=== PATIENT | female | born 1990 | race Caucasian/White ===

== ENCOUNTER 2017-11-18 15:45 | Emergency (ER) | payer OTHER ==
[2017-11-18 15:53] VITALS: BP 134/77; PULSE 86; RESP 16; TEMP 97.9
--- NOTE | 2017-11-18 16:10 | ED ---
Skin/Abscess/FB HPI - General Chief complaint: Skin/Abscess/Foreign Body Stated complaint: Hand Pain Source: patient Mode of arrival: wheelchair Limitations: no limitations - History of Present Illness Initial comments: Pt presents with wound on R wrist. Pt states 2 weeks ago a friend used a laser to try to remove a tattoo. Pt c/o wound is not healing. Was seen at urgent care yesterday, given Keflex, has taken 3 doses, states it is not improved. Denies F/ C, N/V. Denies dec ROM in wrist. Pt also c/o R knee pain, mild, only when bending. Denies recent trauma. Denies swelling or skin color changes. Pt states she has h/o arthritis. - Related Data Previous Rx's Medication Instructions Recorded Sulfamethoxazole/Trimethoprim 1 each PO BID #14 tablet 11/18/17 [Bactrim DS 800-160 mg] Allergies Allergy/AdvReac Type Severity Reaction Status Date / Time amoxicillin [From Augmentin] Allergy Unknown Verified 11/18/17 15:53 Childhood clavulanic acid Allergy Unknown Verified 11/18/17 15:53 [From Augmentin] Childhood Penicillins Allergy Unknown Verified 11/18/17 15:53 Childhood Review of Systems ROS Statement: Those systems with pertinent positive or pertinent negative responses have been documented in the HPI. Constitutional: Denies: fever, chills, weakness Eyes: Denies: vision change ENT: Denies: congestion Respiratory: Denies: cough Cardiovascular: Denies: chest pain Endocrine: Denies: fatigue Gastrointestinal: Denies: abdominal pain, nausea, vomiting Genitourinary: Denies: frequency Musculoskeletal: Reports: arthralgia (R knee). Denies: back pain, joint swelling, myalgia Skin: Reports: lesions Neurological: Denies: headache Past Medical History Past Medical History: Cancer Additional Past Medical History / Comment(s): lupus, thyroid History of Any Multi-Drug Resistant Organisms: None Reported Past Surgical History: Section Past Psychological History: No Psychological Hx Reported Smoking Status: Never smoker Past Alcohol Use History: None Reported Past Drug Use History: None Reported General Exam - General Exam Comments Initial Comments: Sitting up on side of bed. No acute distress. Conversing normally. Calm, pleasant, smiling. Well appearing. Limitations: no limitations General appearance: alert, in no apparent distress Head exam: Present: atraumatic, normocephalic Eye exam: Present: normal appearance, PERRL, EOMI ENT exam: Absent: mucous membranes dry Neck exam: Present: normal inspection Respiratory exam: Present: normal lung sounds bilaterally. Absent: respiratory distress, wheezes, rales Cardiovascular Exam: Present: regular rate, normal rhythm GI/Abdominal exam: Present: soft. Absent: distended, tenderness, guarding, rebound, rigid Extremities exam: Present: full ROM, normal capillary refill, other (Full range of motion in the right wrist and elbow. No edema of the right upper extremity. Full range of motion in the right knee. No edema of the right knee. No bony tenderness of the right upper extremity or right lower extremity. No ligamentous laxity in the right knee.). Absent: tenderness, joint swelling Neurological exam: Present: alert, oriented X3 Psychiatric exam: Present: normal affect, normal mood Skin exam: Present: warm, dry (3 mm x 5 mm superficial wound right wrist, with approximately 1/2 cm diameter surrounding erythema which is blanching. No induration or fluctuance appreciated. No streaking up the arm.) Course Vital Signs 11/18/17 15:46 Temperature 97.9 F Pulse Rate 86 Respiratory 16 Rate Blood Pressure 134/77 O2 Sat by Pulse 99 Oximetry Medical Decision Making - Medical Decision Making Patient appears to have small superficial wounds on right wrist, no sign of joint involvement or systemic disease. Patient to continue Keflex, will add Bactrim, patient agrees to follow up with primary care physician 2 days for wound recheck. Patient appears to have atraumatic right knee pain without signs of infection edema or other injury. Patient agrees to NSAIDs at home. Reevaluation with primary care physician, if pain continues agrees to discuss referral to orthopedic surgeon with her primary care physician. Return to ER for new or worsening symptoms. Patient understands and agrees. Pt comfortable being discharged home at this time. Disposition Clinical Impression: Cellulitis of wrist, Right knee pain Disposition: HOME SELF-CARE Condition: Good Instructions: Cellulitis (ED), Knee Pain (ED) Additional Instructions: Follow-up with her primary care physician in one to 2 days for reevaluation of wound. Also to discuss orthopedic surgery referral if right knee pain continues. Return to ER if new or worsening symptoms. Prescriptions: Sulfamethoxazole/Trimethoprim [Bactrim DS 800-160 mg] 1 each PO BID #14 tablet Referrals: Raad Cantor MD [Primary Care Provider] - 1-2 days
== END 2017-11-18 16:33 | disposition home or self-care (01) ==
LOC: EC 15:45
DX: L03.113 Cellulitis of right upper limb (principal); M25.561 Pain in right knee; Z85.9 Personal history of malignant neoplasm, unspecified; Z88.0 Allergy status to penicillin
CPT/HCPCS: 99283

== ENCOUNTER 2018-10-11 05:38 | Day surgery (SDC) | payer OTHER ==
--- NOTE | 2018-10-09 16:43 | P.HPOB ---
History of Present Illness H&P Date: 10/09/18 Cervical dysplasia, patient is scheduled for a LEEP colposcopy due to history of YULIYA-2 and feels cryo-cauterization. Risks/benefits/alternatives to this procedure were discussed with the patient in detail all questions were answered for her prior to proceeding to the operative room. We did discuss in particular the risk of sometimes can be difficult getting following a LEEP procedure as well as potential for cervical incompetence. All other questions were answered for her prior to proceeding to the operating room. Past Medical History Past Medical History: Cancer Additional Past Medical History / Comment(s): lupus, thyroid History of Any Multi-Drug Resistant Organisms: None Reported Past Surgical History: Section Past Psychological History: No Psychological Hx Reported Smoking Status: Never smoker Past Alcohol Use History: None Reported Past Drug Use History: None Reported Medications and Allergies Home Medications Medication Instructions Recorded Confirmed Type Ascorbic Acid [Vitamin C] 500 mg PO DAILY 11/18/17 11/18/17 History Cephalexin [Keflex] 500 mg PO Q12HR 11/18/17 11/18/17 History Ergocalciferol (Vitamin D2) 50,000 unit PO WE 11/18/17 11/18/17 History [Vitamin D2] Ferrous Sulfate [Feosol] 325 mg PO TID 11/18/17 11/18/17 History Gabapentin [Neurontin] 300 mg PO TID 11/18/17 11/18/17 History Hydroxychloroquine Sulfate 200 mg PO BID 11/18/17 11/18/17 History [Plaquenil] Levothyroxine Sodium [Synthroid] 100 mcg PO DAILY 11/18/17 11/18/17 History Multivitamins, Thera [Multivitamin 1 tab PO DAILY 11/18/17 11/18/17 History (formulary)] [place]-3 Fatty Acids/Fish Oil [Fish 1 cap PO DAILY 11/18/17 11/18/17 History Oil 1,000 mg Softgel] Sulfamethoxazole/Trimethoprim 1 each PO BID #14 tablet 11/18/17 Rx [Bactrim DS 800-160 mg] predniSONE 10 mg PO BID 11/18/17 11/18/17 History Allergies Allergy/AdvReac Type Severity Reaction Status Date / Time amoxicillin [From Augmentin] Allergy Unknown Verified 11/18/17 16:22 Childhood clavulanic acid Allergy Unknown Verified 11/18/17 16:22 [From Augmentin] Childhood Penicillins Allergy Unknown Verified 11/18/17 16:22 Childhood Exam Osteopathic Statement: *. No significant issues noted on an osteopathic structural exam other than those noted in the History and Physical/Consult. - OBG Physical Exam Breast: both: normal (no masses) Abdomen: bowel sounds normal, no diffuse tenderness, no bruit present, no guarding noted, no hepatomegaly, no splenomegaly, no mass Vulva: both: normal Vagina: normal moisture, no discharge Cervix: no lesion, no discharge Uterus: normal size, normal contour Adnexa: both: normal Anus/Rectum: normal perianal skin, no rectal mass, no hemorrhoids, heme negative
[2018-10-09 18:23] VITALS: BMI 28.2
[~2018-10-11 05:38] MED LIST: DEXAMETHASONE SOD PHOSPHATE 10 MG/ML 1 ML VIAL IV ONE; LACTATED RINGERS 1,000 ML IV SCH; LIDOCAINE 1% 20 ML VIAL (10MG/ML) FOR IV START INTRADERMA PRN; MIDAZOLAM 2 MG/2 ML VIAL IV PRN; Pre Op ABX Message 1 EACH MISC MISCELLANE ONE; fentaNYL (PF) 50 MCG/ML 2 ML AMP IV PRN
[2018-10-11] MEDS ORDERED: ONDANSETRON 4 MG/2 ML VIAL IVP ONE (06:40)
[2018-10-11] MEDS ORDERED: MIDAZOLAM 2 MG/2 ML VIAL IVP ONE ×2 (06:45→07:00)
[2018-10-11] MEDS ORDERED: LIDOCAINE 1% INJ 10MG/ML (20 ML MDV) ONE (07:50)
[2018-10-11] MEDS ORDERED: KETOROLAC 30 MG/ML 1 ML VIAL ONE (07:50)
[2018-10-11] MEDS ORDERED: MIDAZOLAM 2 MG/2 ML VIAL ONE (07:50)
[2018-10-11] MEDS ORDERED: fentaNYL (PF) 50 MCG/ML 2 ML AMP ONE (07:50)
[2018-10-11] MEDS ORDERED: PROPOFOL 10 MG/ML 20 ML VIAL IV ONE (07:50)
[2018-10-11 08:09] LABS: Basophils % (A) 1 %; Eosinophils # (A) 0.2 k/uL (0-0.7); Eosinophils % (A) 3 %; HCT 38.4 % (34.0-46.0); HGB 12.8 gm/dL (11.4-16.0); Lymphocytes % (A) 33 %; MCH 27.9 pg (25.0-35.0); MCHC 33.3 g/dL (31.0-37.0); MCV 83.6 fL (80.0-100.0); Mean Platelet Volume 7.7; Monocytes # (A) 0.4 k/uL (0-1.0); Monocytes % (A) 7 %; Neutrophils # (A) 3.3 k/uL (1.3-7.7); Neutrophils % (A) 55 %; Platelet Count 217 k/uL (150-450); RBC 4.59 m/uL (3.80-5.40); RDW 15.1 % (11.5-15.5)
[2018-10-11 08:10] VITALS: RESP 16
--- NOTE | 2018-10-11 08:16 | P.OP ---
Date of Procedure: 10/11/18 Preoperative Diagnosis: Cervical dysplasia Postoperative Diagnosis: Same Procedure(s) Performed: LEEP colposcopy Anesthesia: ANGEL LUIS Surgeon: Duane Cyr Estimated Blood Loss (ml): 5 Pathology: other (Cervical cone) Condition: stable Disposition: same day Operative Findings: Weight final tissue pathology Description of Procedure: Patient was taken to the operating suite where general anesthetic was found be adequate. She was prepped and draped in the normal sterile fashion and placed in the dorsal lithotomy position. Initially a coated speculum was inserted into the vagina and the cervix was then covered with Lugol solution. Colposcopy was then done once scope was in place and cervix identified a 2 cm loop was used to excise the ectocervical and portion of the endocervical canal. Sample was obtained and tagged at 12:00 and sent to pathology for evaluation. Once this was accomplished ball-tipped cautery was used to obtain excellent hemostasis on the cervix and destroy any potential remaining dysplastic tissue. All instruments were then removed. Sponge, lap, needle counts were all correct 2. Patient was then taken to the recovery room in stable and satisfactory condition. Plan - Discharge Summary New Discharge Prescriptions: No Action Ascorbic Acid [Vitamin C] 2,000 mg PO DAILY Levothyroxine Sodium [Synthroid] 200 mcg PO HS Multivitamin/Iron/Folic Acid [Centrum Adults Tablet] 1 each PO DAILY Cyanocobalamin (Vitamin B-12) [Vitamin B-12] 1,000 mcg PO DAILY Magnesium 250 mg PO DAILY Cholecalciferol [Vitamin D3] 1,000 unit PO DAILY Discharge Medication List Ascorbic Acid [Vitamin C] 2,000 mg PO DAILY 11/18/17 [History] Levothyroxine Sodium [Synthroid] 200 mcg PO HS 11/18/17 [History] Cholecalciferol [Vitamin D3] 1,000 unit PO DAILY 10/09/18 [History] Cyanocobalamin (Vitamin B-12) [Vitamin B-12] 1,000 mcg PO DAILY 10/09/18 [ History] Magnesium 250 mg PO DAILY 10/09/18 [History] Multivitamin/Iron/Folic Acid [Centrum Adults Tablet] 1 each PO DAILY 10/09/18 [ History]
[2018-10-11 08:24] VITALS: TEMP 98
[2018-10-11 09:13] VITALS: BP 101/65; PULSE 79
== END 2018-10-11 09:46 | disposition home or self-care (01) ==
LOC: OR 05:38
PROVIDERS: ATTEND Obstetrics & Gynecology
DX: N87.9 Dysplasia of cervix uteri, unspecified (principal); M32.9 Systemic lupus erythematosus, unspecified; E89.0 Postprocedural hypothyroidism; Z79.899 Other long term (current) drug therapy; Z79.890 Hormone replacement therapy; Z79.52 Long term (current) use of systemic steroids; Z88.0 Allergy status to penicillin; Z85.850 Personal history of malignant neoplasm of thyroid
CPT/HCPCS: 81025; 85025; 88307; 57460; J2250; J1100; J2405; J2001; J3010; J1885; J2704

== ENCOUNTER 2018-10-18 10:22 | Emergency (ER) | payer OTHER ==
[2018-10-18] MEDS ORDERED: SODIUM CHLORIDE 0.9% 1,000 ML IV ONE (10:39)
--- NOTE | 2018-10-18 11:17 | ED ---
Female Urogenital HPI - General Chief complaint: Vaginal Bleeding Stated complaint: post op/vaginal bleeding Time Seen by Provider: 10/18/18 10:30 Source: patient, RN notes reviewed, old records reviewed Mode of arrival: ambulatory Limitations: no limitations - History of Present Illness Initial comments: This is a 20-year-old female the ER for evaluation. Patient presents to ER for evaluation of vaginal bleeding. Patient is having persistent vaginal bleeding postop, postop LEEP. Patient again denies chance of no sexual activity since procedure. No abdominal pain. Patient states the bleeding has persisted from surgery did slow down to some spotting and has picked up the last 2 days. Patient states she's gone from spotting pads a day to change her pad about every hour. No lightheadedness dizziness or weakness no bowel pain or chest pain. She states she attempted to contact her OB in her OBs office multiple times but was unable to make that connection MD Complaint: vaginal bleeding, other (Postop bleeding) -: days(s) (2) Location: other (No pain) Severity: moderate Severity scale (1-10): 4 Consistency: constant Improves with: none Worsens with: none Associated Symptoms: vaginal bleeding - Related Data Sexually active: No Home Medications Medication Instructions Recorded Confirmed Ascorbic Acid [Vitamin C] 2,000 mg PO DAILY 11/18/17 10/18/18 Cholecalciferol [Vitamin D3] 1,000 unit PO DAILY 10/09/18 10/18/18 Cyanocobalamin (Vitamin B-12) 1,000 mcg PO DAILY 10/09/18 10/18/18 [Vitamin B-12] Magnesium 250 mg PO DAILY 10/09/18 10/18/18 Multivitamin/Iron/Folic Acid 1 each PO DAILY 10/09/18 10/18/18 [Centrum Adults Tablet] Levothyroxine Sodium [Synthroid] 200 mcg PO DAILY 10/18/18 10/18/18 Allergies Allergy/AdvReac Type Severity Reaction Status Date / Time amoxicillin [From Augmentin] Allergy Unknown Verified 10/18/18 10:43 Childhood clavulanic acid Allergy Unknown Verified 10/18/18 10:43 [From Augmentin] Childhood Penicillins Allergy Unknown Verified 10/18/18 10:43 Childhood Review of Systems ROS Statement: Those systems with pertinent positive or pertinent negative responses have been documented in the HPI. ROS Other: All systems not noted in ROS Statement are negative. Past Medical History Past Medical History: Cancer, Skin Disorder, Thyroid Disorder Additional Past Medical History / Comment(s): HX HASHIMOTOS, HAD Thyroid CA 2017. POS ABN CELLS CERVIX. 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 C /O SHARP SHOOTING PAINS OCC IN PELVIC/ANAL AREAS. HAS DERMAL PIERCINGS ON LOWER BACK. History of Any Multi-Drug Resistant Organisms: None Reported Past Surgical History: Section Additional Past Surgical History / Comment(s): THYROIDECTOMY 2018. Past Anesthesia/Blood Transfusion Reactions: No Reported Reaction Past Psychological History: No Psychological Hx Reported Smoking Status: Never smoker Past Alcohol Use History: None Reported Past Drug Use History: None Reported - Past Family History Mother Family Medical History: No Reported History General Exam Limitations: no limitations General appearance: alert, in no apparent distress Head exam: Present: atraumatic, normocephalic, normal inspection Eye exam: Present: normal appearance, PERRL, EOMI. Absent: scleral icterus, conjunctival injection, periorbital swelling ENT exam: Present: normal exam, mucous membranes moist Neck exam: Present: normal inspection. Absent: tenderness, meningismus, lymphadenopathy Respiratory exam: Present: normal lung sounds bilaterally. Absent: respiratory distress, wheezes, rales, rhonchi, stridor Cardiovascular Exam: Present: regular rate, normal rhythm, normal heart sounds. Absent: systolic murmur, diastolic murmur, rubs, gallop, clicks GI/Abdominal exam: Present: soft, normal bowel sounds. Absent: distended, tenderness, guarding, rebound, rigid Extremities exam: Present: normal inspection, full ROM, normal capillary refill. Absent: tenderness, pedal edema, joint swelling, calf tenderness Back exam: Present: normal inspection Neurological exam: Present: alert, oriented X3, CN II-XII intact Psychiatric exam: Present: normal affect, normal mood Skin exam: Present: warm, dry, intact, normal color. Absent: rash Course Vital Signs 10/18/18 10/18/18 10:24 12:08 Temperature 97.6 F 98.2 F Pulse Rate 84 52 L Respiratory 20 18 Rate Blood Pressure 122/80 107/62 O2 Sat by Pulse 99 100 Oximetry - Reevaluation(s) Reevaluation #1: Medical record is reviewed, surgical history is reviewed Patient is refusing lab draw lab testing, refusing pelvic exam Did speak with patient's OB, ok for patient to FU in office on Sunday Medical Decision Making - Medical Decision Making 20 female the ER for eversion postop bleeding. Bleeding times one week. Patient is hemodynamically stable with normal vital signs are stable with no significant symptoms of syncope nursing to be lightheadedness dizziness or weakness. Patient can be discharged home Disposition Clinical Impression: Postoperative vaginal bleeding, Vaginal bleeding Disposition: HOME SELF-CARE Condition: Good Instructions: Postoperative Bleeding (ED) Is patient prescribed a controlled substance at d/c from ED?: No Referrals: Duane Cyr DO [Doctor of Osteopathic Medicine] - 1-2 days
[2018-10-18 12:11] VITALS: BP 107/62; PULSE 52; RESP 18; TEMP 98.2
== END 2018-10-18 12:08 | disposition home or self-care (01) ==
LOC: EC 10:22
DX: N99.820 Postprocedural hemorrhage of a genitourinary system organ or structure following a genitourinary system procedure (principal); E06.3 Autoimmune thyroiditis; Z85.850 Personal history of malignant neoplasm of thyroid; Z79.890 Hormone replacement therapy; Z79.899 Other long term (current) drug therapy; Z88.0 Allergy status to penicillin; Z53.29 Procedure and treatment not carried out because of patient's decision for other reasons
CPT/HCPCS: 99284